=== PATIENT | female | born 1975 | race Caucasian/White ===

== ENCOUNTER 2017-10-15 07:54 | Outpatient (CLI) | payer BC | END 2017-10-15 07:55 | disposition home or self-care (01) | LOC: BICMAMMO 07:54 | PROVIDERS: ATTEND Family Medicine | DX: Z12.31 Encounter for screening mammogram for malignant neoplasm of breast (principal) | CPT/HCPCS: 77067; G0202 ==

== ENCOUNTER 2018-06-15 04:05 | Emergency (ER) | payer BC ==
[2018-06-15 04:37] LABS: Bilirubin Negative (Negative); Blood, Urine Negative (Negative); Clarity Clear (Clear); Glucose, Urine (Dipstick) Negative (Negative); Leukocyte Negative (Negative); Nitrite Negative (Negative); Protein, Urine (Dipstick) Negative (Neg-Trace); Urobilinogen 0.2 mg/dL (0.2-1.0)
[2018-06-15 04:38] LABS: Pregu Control Background? CLEAR/WHITE (CLR/WHITE); Pregu Control Bar Appear? YES (CONTROL BAR)
[2018-06-15 04:49] LABS: Pregnancy Test - Urine (BHCG) Negative (Negative)
[2018-06-15 04:56] LABS: #Basophils 0.2 thou/uL (0.0-0.2); #Eosinphils 0.1 thou/uL (0.0-0.7); #Lymphocytes 2.2 thou/uL (1.20-3.40); #Monocytes 0.7 thou/uL (0.11-0.59); #Neutrophils 5.7 thou/uL (1.40-6.50); %Basophils 1.8 % (0.0-1.0); %Eosinophils 0.7 % (0.0-10.0); %Lymphocytes 24.9 % (21.0-51.0); %Monocytes 8.1 % (0.0-10.0); %Neutrophils 64.5 % (42.0-75.0); Hemoglobin 12.9 g/dL (12.0-16.0); Mean Corpuscular HGB CONC 35.5 g/dL (32.0-36.0); Mean Corpuscular Hemoglobin 29.1 pg (27.0-31.0); Mean Corpuscular Volume 81.9 fL (78.0-98.0); Mean Platelet Volume 9.2 fL (7.4-10.4); Platelet Count 248 thou/uL (130-400); RBC Distribution Width 11.5 % (11.5-14.5); Red Blood Cell (RBC) Count 4.44 mill/uL (4.20-5.40); White Blood Cell (WBC) Count 8.9 thou/uL (4.8-10.8)
[2018-06-15 05:13] LABS: ALT (SGPT) 10 U/L (8-55); AST (SGOT) 10 U/L (5-34); Albumin 3.8 g/dL (3.5-5.0); Alkaline Phosphatase 56 U/L (40-150); Anion Gap 11 mmol/L (10-20); BUN (Urea Nitrogen) 11 mg/dL (7.0-18.7); Bilirubin, Total 0.6 mg/dL (0.2-1.2); Calc. Creatinine Clearance 0 mL/min (70-130); Calcium 9.1 mg/dL (7.8-10.44); Carbon Dioxide 25 mmol/L (22-29); Chloride 108 mmol/L (98-107); Estimated GFR-MDRD 87; Globulin 2.6 g/dL (2.4-3.5); Glucose 112 mg/dL (70-105); Lipase 25 U/L (8-78); Potassium 3.8 mmol/L (3.5-5.1); Protein, Total 6.4 g/dL (6.0-8.3); Sodium 140 mmol/L (136-145)
[2018-06-15] MEDS ORDERED: Ketorolac Tromethamine 30 MG/ML VIAL ONE (06:30)
--- NOTE | 2018-06-15 10:50 | CT ---
PRELIMINARY REPORT/[facility]/EMERGENTY AFTER-HOURS PROCEDURE CT Abdomen and Pelvis Without Intravenous Contrast EXAM DATE/TIME: Exam ordered 06/15/2018 4:54 AM CLINICAL HISTORY: 42 years old, female; Pain; Abdominal pain; Patient HX: Llq abdominal pain, onset yesterday, worse th is am. Today pain got worse at 0030 and continues. Denies fever. Had nausea yesterday. Normal bm. No dysuria, no vag discharge. Lmp 2 weeks ago. TECHNIQUE: Axial computed tomography images of the abdomen and pelvis without intravenous contrast. Coronal reformatted images were created and reviewed. COMPARISON: No relevant prior studies available. FINDINGS: Lung bases: Normal. No mass. No consolidation. ABDOMEN: Liver: The liver is within normal limits for this noncontrast study. Gallbladder and bile ducts: The gallbladder is normal. There is no evidence of biliary ductal dilatio n. No calcified stones. Pancreas: The pancreas appears normal. No ductal dilation. Spleen: The spleen is normal. Adrenals: The adrenal glands are normal. Kidneys and ureters: The kidneys appear normal. No obstructing stones. No hydronephrosis. Stomach and bowel: The stomach is normal. The duodenum is unremarkable. The colon is normal. There is mild fluid within the small bowel without evidence of obstruction. No mucosal thickening. PELVIS: Appendix: A normal appendix is identified. Bladder: The bladder is normal. No stones. Reproductive: The uterus is normal. ABDOMEN and PELVIS: Intraperitoneal space: Normal. No free air. No significant fluid collection. Bones/joints: No acute fracture. No dislocation. Soft tissues: Normal. Vasculature: Normal. No abdominal aortic aneurysm. Lymph nodes: Normal. No enlarged lymph nodes. IMPRESSION: No acute abdominal pelvic pathology. Thank you for allowing us to participate in the care of your patient. Dictated and Authenticated by: Taiwo Casey MD 06/15/2018 5:43 AM Central Time ([place] & [place]) FINAL REPORT CT ABDOMEN AND PELVIS WITHOUT CONTRAST: I agree with the preliminary report given by Dr. Taiwo Casey of [facility]. POS: OFF
--- NOTE | 2018-06-15 10:51 | ULT ---
PRELIMINARY REPORT/[facility]/EMERGENTY AFTER-HOURS PROCEDURE US Pelvis Complete, Transabdominal US Duplex Arterial/Venous of the Pelvis, Complete EXAM DATE/TIME: Exam ordered 06/15/2018 6:03 AM CLINICAL HISTORY: 42 years old, female; Pain and signs and symptoms; Other: Nausea; Pelvic pain; Patient HX: Llq pain x 3 days TECHNIQUE: Real-time transabdominal pelvic ultrasound (complete) with image documentation. Real-time duplex ultr asound scan of the arterial and venous flow of the pelvis with color Doppler flow and spectral wavefo rm analysis. COMPARISON: CT - Abdomen^[id number]_Pel (Adult) 2018-06-15 04:54 FINDINGS: Uterus/cervix: Uterus measures 10.9 x 4.0 x 5.5 cm. Endometrial thickness measures 4 mm. No myometria l mass. Right ovary: RIGHT ovary measures 2.9 x 2.0 x 2.6 cm. Normal arterial and venous waveforms. No torsio n. Left ovary: LEFT ovary measures 3.9 x 1.8 x 1.3 cm. Normal arterial and venous waveforms. No torsion. Free fluid: No free fluid. IMPRESSION: Unremarkable pelvic ultrasound without evidence of ovarian torsion on either side. Thank you for allowing us to participate in the care of your patient. Dictated and Authenticated by: Taiwo Casey MD 06/15/2018 6:23 AM Central Time ([place] & [place]) FINAL REPORT PELVIC ULTRASOUND WITH DOPPLER: I agree with the report, given by Dr. Maravilla of [facility]. POS: OFF
== END 2018-06-15 06:54 | disposition home or self-care (01) ==
LOC: SCSER 04:05
DX: R10.32 Left lower quadrant pain (principal); K58.9 Irritable bowel syndrome, unspecified; G47.30 Sleep apnea, unspecified; Z79.899 Other long term (current) drug therapy
CPT/HCPCS: 74176; 76856; 80053; 81003; 81025; 83690; 85025; 93976; 96372; J1885

== ENCOUNTER 2018-10-28 08:41 | Outpatient (CLI) | payer BC | END 2018-10-28 08:42 | disposition home or self-care (01) | LOC: BICMAMMO 08:41 | PROVIDERS: ATTEND Family Medicine | DX: Z12.31 Encounter for screening mammogram for malignant neoplasm of breast (principal) | CPT/HCPCS: 77063; 77067 ==

== ENCOUNTER 2019-10-30 08:38 | Outpatient (CLI) | payer BC ==
--- NOTE | 2019-10-30 10:05 | MMO ---
Bilateral MAMMO Bilat Screen [facility]. CLINICAL HISTORY: Patient is 44 years old and is seen for screening. The patient has no family history of breast cancer. The patient has no personal history of cancer. VIEWS: The views performed were: bilateral craniocaudal with tomosynthesis and bilateral mediolateral oblique with tomosynthesis. FILMS COMPARED: The present examination has been compared to prior imaging studies performed at [facility] on 10/15/2017 and 10/28/2018. This study has been interpreted with the assistance of computer-aided detection. MAMMOGRAM FINDINGS: There are scattered fibroglandular densities. There are no suspicious masses, suspicious calcifications, or new areas of architectural distortion. IMPRESSION: THERE IS NO MAMMOGRAPHIC EVIDENCE OF MALIGNANCY. A ROUTINE FOLLOW-UP MAMMOGRAM IN 1 YEAR IS RECOMMENDED. THE RESULTS OF THIS EXAM WERE SENT TO THE PATIENT. ACR BI-RADS Category 1 - Negative MAMMOGRAPHY NOTE: 1. A negative mammogram report should not delay a biopsy if a dominant of clinically suspicious mass is present. 2. Approximately 10% to 15% of breast cancers are not detected by mammography. 3. Adenosis and dense breasts may obscure an underlying neoplasm. Reported by: HERBIE WILSON MD Electonically Signed: [id number]
== END 2019-10-30 08:39 | disposition home or self-care (01) ==
LOC: BICMAMMO 08:38
PROVIDERS: ATTEND Family Medicine
DX: Z12.31 Encounter for screening mammogram for malignant neoplasm of breast (principal)
CPT/HCPCS: 77063; 77067

== ENCOUNTER 2020-09-30 11:18 | Outpatient (CLI) | payer BC ==
[2020-09-30 12:35] LABS: #Basophils 0.1 10x3/uL (0.0-0.2); #Eosinphils 0.1 10x3/uL (0.0-0.5); #Monocytes 0.7 10x3/uL (0.0-1.1); #Neutrophils 6.8 10x3/uL (1.5-8.4); %Basophils 0.9 % (0.0-2.0); %Eosinophils 0.5 % (0.0-6.0); %Lymphocytes 25.9 % (18.0-47.0); %Monocytes 6.8 % (0.0-10.0); %Neutrophils 65.5 % (40.0-75.0); Hemoglobin 13.6 g/dL (12.0-16.0); Mean Corpuscular HGB CONC 33.2 G/DL (32.0-36.0); Mean Corpuscular Hemoglobin 29.5 PG (27.0-33.0); Mean Corpuscular Volume 88.9 fl (80.0-100.0); Mean Platelet Volume 11.6 fl (7.4-10.4); Platelet Count 284 10x3/uL (130-400); Red Blood Cell (RBC) Count 4.61 10x6/uL (3.90-5.20); White Blood Cell (WBC) Count 10.4 10x3/uL (4.5-11.0)
[2020-09-30 12:52] LABS: Anion Gap 15 mmol/L (10-20); BUN (Urea Nitrogen) 8 mg/dL (7.0-18.7); Calc. Creatinine Clearance 0 mL/min (70-130); Calcium 9.3 mg/dL (7.8-10.44); Carbon Dioxide 25 mmol/L (22-29); Chloride 106 mmol/L (98-107); Estimated GFR-MDRD 90; Glucose 83 mg/dL (70-105); Potassium 4.2 mmol/L (3.5-5.1); Sodium 142 mmol/L (136-145)
[2020-09-30 14:25] LABS: BHCG - Serum Negative (NEGATIVE); Pregs Control Background? CLEAR/WHITE (CLR/WHITE); Pregs Control Bar Appear? YES (CONTROL BAR)
[2020-09-30 19:16] LABS: SARS-CoV-2 MS2 Positive; SARS-CoV-2 N Gene Negative; SARS-CoV-2 S Gene Negative; SARS-CoV-2 by NAA Not Detected (NotDetected); SARS-CoV-2 orf1ab Negative
== END 2020-09-30 11:19 | disposition home or self-care (01) ==
LOC: LABBT 11:18
PROVIDERS: ATTEND Specialist
DX: Z01.812 Encounter for preprocedural laboratory examination (principal); D17.1 Benign lipomatous neoplasm of skin and subcutaneous tissue of trunk; Z20.828 Contact with and (suspected) exposure to other viral communicable diseases
CPT/HCPCS: 80048; 84703; 85025; 87635; U0003

== ENCOUNTER 2020-10-03 12:56 | Day surgery (SDC) | payer BC ==
[2020-10-02 12:11] VITALS: BMI 29.3
[~2020-10-03 12:56] MED LIST: Lidocaine 1% PF 5 ML VIAL ONE
[2020-10-03] MEDS ORDERED: Ketorolac Tromethamine 30 MG/ML VIAL ONE (14:27)
[2020-10-03] MEDS ORDERED: Acetaminophen 500 MG TAB ONE (14:27)
[2020-10-03] MEDS ORDERED: Scopolamine 1.5 mg/72 hour Patch ONE (14:27)
[2020-10-03] MEDS ORDERED: Sodium Bicarb 50 MEQ/50 ML Abboject 8.4% SYRINGE ONE (16:42)
[2020-10-03] MEDS ORDERED: Bupivacaine 0.25% HCL 30 ML VIAL ONE (16:42)
[2020-10-03] MEDS ORDERED: Sodium Bicarbonate 2.5 MEQ/5 ML VIAL ONE (16:42)
[2020-10-03] MEDS ORDERED: Fentanyl 100 MCG/2 ML VIAL ONE (16:55)
[2020-10-03] MEDS ORDERED: PROPOFOL 40 ML ONE (16:55)
[2020-10-03] MEDS ORDERED: Lidocaine 1% w/Epinephrine 1:100K 20 ML VIAL ONE (17:16)
--- NOTE | 2020-10-04 12:54 | OP ---
DATE OF PROCEDURE: 10/03/2020 PREOPERATIVE DIAGNOSIS: Right chest wall lipoma. POSTOPERATIVE DIAGNOSIS: Right chest wall lipoma. OPERATION PERFORMED: Excision of 5 cm right chest wall lipoma. ANESTHESIA: Total intravenous anesthesia with local using 0.25% Marcaine mixed with 1% lidocaine with epinephrine. INDICATIONS: The patient is a 45-year-old white female. She presented with a palpable mass in her right chest. This had an unusual sonographic appearance and for that reason, I obtained a percutaneous biopsy which was consistent with a mature lipoma. Due to the size of this as well as symptoms, excision had been recommended. DESCRIPTION OF OPERATION: Informed consent was obtained. Patient was taken to the operating room, where total intravenous anesthesia was obtained with the patient in supine position. Right chest wall was prepped with ChloraPrep and draped in sterile fashion. Local anesthetic was infiltrated using a mixture of 1% lidocaine with epinephrine and 0.25% Marcaine. A transverse incision was created over the palpable mass. Dissection was carried through the skin and subcutaneous tissue down to the lipoma. This was carefully dissected circumferentially and removed from the depths of the chest wall intact. Meticulous hemostasis was obtained with electrocautery. The wound was closed in layers so as to close the space with a running suture of 3-0 Monocryl, followed by skin closure of 4-0 Monocryl. Dermabond was placed externally. There were no complications. The patient tolerated the procedure well and was taken to recovery room in stable condition. Job ID: [id number]
== END 2020-10-03 18:35 | disposition home or self-care (01) ==
LOC: SDC 12:56
PROVIDERS: ATTEND Specialist
PROC: 0JB60ZZ Excision of Chest Subcutaneous Tissue and Fascia, Open Approach (ICD-10-PCS; principal; 2020-10-03)
DX: D17.1 Benign lipomatous neoplasm of skin and subcutaneous tissue of trunk (principal); G47.33 Obstructive sleep apnea (adult) (pediatric); I10 Essential (primary) hypertension; E78.5 Hyperlipidemia, unspecified; K21.9 Gastro-esophageal reflux disease without esophagitis; K58.9 Irritable bowel syndrome, unspecified; Z79.899 Other long term (current) drug therapy; Z88.6 Allergy status to analgesic agent
CPT/HCPCS: 88304; J0690; J1885; J2704; J3010; S0020

== ENCOUNTER 2020-12-09 10:00 | Outpatient (CLI) | payer BC ==
--- NOTE | 2020-12-09 10:43 | MMO ---
Bilateral MAMMO Bilat Screen [facility]. CLINICAL HISTORY: Patient is 45 years old and is seen for screening. The patient has no family history of breast cancer. The patient has no personal history of cancer. The patient has a history of right Lumpectomy in October, - benign - CHEST WALL SOFT TISSUE MASS. VIEWS: The views performed were: bilateral craniocaudal with tomosynthesis and bilateral mediolateral oblique with tomosynthesis. FILMS COMPARED: The present examination has been compared to prior imaging studies performed at [facility] on 10/15/2017, 10/28/2018 and 10/30/2019. This study has been interpreted with the assistance of computer-aided detection. MAMMOGRAM FINDINGS: There are scattered fibroglandular densities. There are no suspicious masses, suspicious calcifications, or new areas of architectural distortion. IMPRESSION: THERE IS NO MAMMOGRAPHIC EVIDENCE OF MALIGNANCY. A ROUTINE FOLLOW-UP MAMMOGRAM IN 1 YEAR IS RECOMMENDED. THE RESULTS OF THIS EXAM WERE SENT TO THE PATIENT. ACR BI-RADS Category 1 - Negative MAMMOGRAPHY NOTE: 1. A negative mammogram report should not delay a biopsy if a dominant of clinically suspicious mass is present. 2. Approximately 10% to 15% of breast cancers are not detected by mammography. 3. Adenosis and dense breasts may obscure an underlying neoplasm. Reported by: ABBY RED MD Electonically Signed: [id number]
== END 2020-12-09 10:01 | disposition home or self-care (01) ==
LOC: BICMAMMO 10:00
PROVIDERS: ATTEND Family Medicine
DX: Z12.31 Encounter for screening mammogram for malignant neoplasm of breast (principal); Z91.89 Other specified personal risk factors, not elsewhere classified
CPT/HCPCS: 77063; 77067

== ENCOUNTER 2021-05-05 10:26 | Emergency (ER) | payer BC ==
[2021-05-05] MEDS ORDERED: Acetaminophen 500 MG TAB ONE (10:59)
== END 2021-05-05 12:24 | disposition home or self-care (01) ==
LOC: ERS 10:26
DX: T23.172A Burn of first degree of left wrist, initial encounter (principal); T31.0 Burns involving less than 10% of body surface; K58.9 Irritable bowel syndrome, unspecified; R05 Cough; G47.30 Sleep apnea, unspecified; W22.11XA Striking against or struck by driver side automobile airbag, initial encounter
CPT/HCPCS: 71045

== ENCOUNTER 2021-05-12 11:54 | Outpatient (CLI) | payer BC, OTHER | END 2021-05-12 11:55 | disposition home or self-care (01) | LOC: BICRAD 11:54 | PROVIDERS: ATTEND Family Medicine | DX: R06.02 Shortness of breath (principal) | CPT/HCPCS: 71046 ==

== ENCOUNTER 2023-02-22 15:20 | Outpatient (CLI) | payer BC | END 2023-02-22 15:21 | disposition home or self-care (01) | LOC: BICMAMMO 15:20 | PROVIDERS: ATTEND Family Medicine | DX: Z12.31 Encounter for screening mammogram for malignant neoplasm of breast (principal); Z98.890 Other specified postprocedural states | CPT/HCPCS: 77063; 77067 ==